=== PATIENT | female | born 1945 | race Caucasian/White ===

== ENCOUNTER 2017-10-31 15:40 | Emergency (ER) | payer MEDICARE ==
[~2017-10-31] VITALS: Ht 162.6 cm; Wt 68.5 kg
[2017-10-31 15:40] VITALS: BP_SYST 215
[2017-10-31] MEDS ORDERED: GABA-529 PO (16:06)
[2017-10-31] MEDS ORDERED: TROS20TA2 PO (16:06)
[2017-10-31] MEDS ORDERED: IBUP-1480 PO (16:06)
[2017-10-31 16:34] LABS: BASOPHILS # (AUTO) 0.1 K/uL (0.0-0.2); BASOPHILS % (AUTO) 0.7 % (0.0-2.0); EOSINOPHILS # (AUTO) 0.1 K/uL (0.0-0.4); EOSINOPHILS % (AUTO) 1.5 % (0.0-4.0); HEMATOCRIT 37.8 % (36-48); HEMOGLOBIN 12.8 g/dL (12.0-16.0); LYMPHOCYTES # (AUTO) 1.3 K/uL (1.0-5.5); LYMPHOCYTES % (AUTO) 16.6 % (20.5-51.5); MEAN CORPUSCULAR HEMOGLOBIN 30 pg (27-31); MEAN CORPUSCULAR HGB CONC 34 % (32-36); MEAN CORPUSCULAR VOLUME 90 fL (79.0-98.0); MONOCYTES # (AUTO) 0.6 K/uL (0.0-1.0); NEUTROPHILS # (AUTO) 5.8 K/uL (1.8-7.7); NEUTROPHILS % (AUTO) 73.2 % (40.0-70.0); PLATELET COUNT (AUTO) 294 K/uL (130-430); RED BLOOD CELL COUNT(AUTO) 4.22 MIL/uL (4.2-6.2); RED CELL DISTRIBUTION WIDTH 11.5 % (9.0-15.0); WHITE BLOOD COUNT (AUTO) 7.9 K/uL (4.8-10.8)
[2017-10-31] MEDS ORDERED: KETOROLAC TROMETHAMINE 30 MG VIAL IVP ONE (17:00)
[2017-10-31 17:09] LABS: ANION GAP 8 (5-15); CALCIUM 9.2 mg/dL (8.4-11.0); CHLORIDE 92 mmol/L (98-107); CREATININE 0.91 mg/dL (0.55-1.30); GLUCOSE 111 mg/dL (70-99); POTASSIUM 3.7 mmol/L (3.5-5.1); SODIUM SERUM 126 mmol/L (136-145); UREA NITROGEN, BLOOD 8 mg/dL (8-21)
[2017-10-31 17:14] LABS: ALANINE AMINOTRANSFERASE 15 U/L (12-78); ALBUMIN 3.9 g/dL (3.4-4.8); ASPARTATE AMINOTRANSFERASE 15 U/L (10-37); TOTAL BILIRUBIN 0.3 mg/dL (0.0-1.0)
[2017-10-31 17:16] LABS: PROTHROMBIN TIME 10.1 SECS (9.5-12.5)
[2017-10-31] MEDS ORDERED: MORPHINE 2 MG/ML INJ. SYRINGE IVP ONE (18:00)
[2017-10-31] MEDS ORDERED: ONDANSETRON HCL 4 MG/2 ML VIAL IVP ONE (18:00)
[2017-10-31] MEDS ORDERED: LIDOCAINE 1% 10 MG/ML, 20 ML MDV INJ ONE (18:00)
[2017-10-31] MEDS ORDERED: BACITRACIN 1 GM OINT TP ONE ×2 (18:41→18:45)
[2017-10-31 18:53] VITALS: BP_SYST 165
== END 2017-10-31 18:53 | disposition home or self-care (01) ==
LOC: SED 15:40
DX: S02.2XXA Fracture of nasal bones, initial encounter for closed fracture (principal); S40.212A Abrasion of left shoulder, initial encounter; S05.42XA Penetrating wound of orbit with or without foreign body, left eye, initial encounter; I10 Essential (primary) hypertension; W01.0XXA Fall on same level from slipping, tripping and stumbling without subsequent striking against object, initial encounter; Y93.89 Activity, other specified; Y92.89 Other specified places as the place of occurrence of the external cause; Y99.8 Other external cause status
CPT/HCPCS: 12001; 36415; 70450; 71010; 80053; 84484; 85025; 85610; 85730; 93005; 96374; 96375; 99285; J1885; J2001; J2270; J2405

== ENCOUNTER 2021-10-06 10:49 | Emergency (ER) | payer MEDICARE ==
[~2021-10-06] VITALS: Ht 160 cm; Wt 72.6 kg
[~2021-10-06 10:49] MED LIST: GABA-529 PO; IBUP-1970 PO; TROS20TA2 PO
[2021-10-06 11:03] VITALS: BP_SYST 148
--- NOTE | 2021-10-06 11:09 | NUR ---
Patient to ER bed 3 to gown for evaluation. Side rails up. Report given to JAMILA JUNIOR.
--- NOTE | 2021-10-06 11:20 | NUR ---
DR LOPEZ AT BEDSIDE
[2021-10-06] MEDS ORDERED: HYDR-3917 PO (12:42)
[2021-10-06] MEDS ORDERED: IBUP-1969 PO (12:42)
[2021-10-06 13:01] VITALS: BP_SYST 124
--- NOTE | 2021-10-06 13:02 | NUR ---
Patient given written and verbal discharge instructions and verbalizes understanding. VIKASH LOPEZ MD discussed with patient the results and treatment provided. Patient in stable condition. ID arm band removed. Rx MOTRIN, HYDROCODONE of given. Patient educated on pain management and to follow up with PMD. Pain Scale 2. Opportunity for questions provided and answered. Medication side effect fact sheet provided.
== END 2021-10-06 13:02 | disposition home or self-care (01) ==
LOC: SED 10:49
DX: S83.92XA Sprain of unspecified site of left knee, initial encounter (principal); S63.602A Unspecified sprain of left thumb, initial encounter; S40.021A Contusion of right upper arm, initial encounter; I10 Essential (primary) hypertension; Z79.899 Other long term (current) drug therapy; W10.9XXA Fall (on) (from) unspecified stairs and steps, initial encounter; Y93.89 Activity, other specified; Y92.89 Other specified places as the place of occurrence of the external cause; Y99.8 Other external cause status
CPT/HCPCS: 73060-TC; 73140-TC; 73564; 99284